=== PATIENT | male | born 1960 | race Caucasian/White ===

== ENCOUNTER 2022-08-28 06:57 | Outpatient (REF) | payer OTHER, SELFPAY ==
[2022-08-28 07:10] LABS: MANUAL DIFF FLAG NO
[2022-08-28 08:18] LABS: Basophils Percent Auto 0.5 % (0-2); Eosinophils Absolute Auto 0.1 X10*3/uL (0.0-0.4); Eosinophils Percent Auto 1.6 % (0-4); Hematocrit 53.3 % (42.0-52.0); Hemoglobin 18.3 g/dl (14.0-18.0); Imm Gran Abs Auto 0.03 X10*3/uL (0.00-0.03); Imm Gran Pct Auto 0.3 % (0.0-0.4); Lymphocytes Absolute Auto 1.8 X10*3/uL (1.2-4.9); Lymphocytes Percent Auto 20.4 % (20-40); Mean Corpuscular HGB Conc 34.3 g/dl (31.0-36.0); Mean Corpuscular Hemoglobin 31.8 pg (27.0-33.0); Mean Corpuscular Volume 92.5 fL (80.0-98.0); Mean Platelet Volume 9.4 fL (9.4-12.4); Monocytes Absolute Auto 0.9 X10*3/uL (0.1-1.2); Monocytes Percent Auto 9.8 % (2-11); Neutrophils Absolute Auto 5.9 x10*3/uL (2.0-8.3); Neutrophils Percent Auto 67.4 % (45-73); Platelet Count 219 X10*3/uL (160-400); Red Blood Count 5.76 X10*6/uL (4.60-5.80); Red Cell Distribution Width 11.7 % (11.0-16.0); White Blood Count 8.7 X10*3/uL (4.8-10.8)
[2022-08-28 08:39] LABS: Alanine Aminotransferase 29 U/L (0-40); Albumin Level 4.5 g/dL (3.5-5.0); Alkaline Phosphatase 77 U/L (39-117); Anion Gap 13 (12-20); Aspartate Amino Transferase 22 U/L (5-37); Bilirubin Total 1.1 mg/dL (0.0-1.0); Blood Urea Nitrogen 19 mg/dL (9-16); Calcium 9.9 mg/dL (8.4-10.2); Carbon Dioxide 27 mmol/L (22-29); Chloride 104 mmol/L (96-108); Cholesterol 188 mg/dL; Estimated Glomerular Filt Rate > 60; Glucose Fasting 101 mg/dL (60-99); HDL Cholesterol 35 mg/dL; LDL Cholesterol Calculated 122 mg/dl; Potassium 4.4 mmol/L (3.3-5.1); Prostate Specific Antigen 3.77 ng/mL (<0.05-4.0); Sodium 140 mmol/L (135-145); Total Protein 7.4 g/dL (6.5-8.0); Triglycerides 159 mg/dL
== END 2022-08-28 06:58 | disposition home or self-care (01) ==
LOC: HO.LAB 06:57
PROVIDERS: PCP Internal Medicine; Visit Provider Internal Medicine
DX: Z00.00 Encounter for general adult medical examination without abnormal findings (principal); Z12.5 Encounter for screening for malignant neoplasm of prostate
CPT/HCPCS: 36415; 80053; 80061; 84153; 85025

== ENCOUNTER 2022-09-27 14:15 | Outpatient (REF) | payer OTHER, SELFPAY | END 2022-09-27 14:16 | disposition home or self-care (01) | LOC: HO.LAB 14:15 | PROVIDERS: PCP Internal Medicine; Visit Provider Internal Medicine | DX: Z13.89 Encounter for screening for other disorder (principal) ==

== ENCOUNTER 2022-09-28 08:56 | Outpatient (REF) | payer OTHER, SELFPAY ==
[2022-09-28 12:46] LABS: Adenovirus F 40/41 Not Detected (Not Detect.); Astrovirus Not Detected (Not Detect.); Campylobacter Not Detected (Not Detect.); Cryptosporidium Not Detected (Not Detect.); Cyclospora cayetanensis Not Detected (Not Detect.); E. coli EAEC Not Detected (Not Detect.); E. coli EPEC Not Detected (Not Detect.); E. coli ETEC Not Detected (Not Detect.); E. coli STEC Not Detected (Not Detect.); Entamoeba histolytica Not Detected (Not Detect.); Giardia lamblia Not Detected (Not Detect.); Norovirus GI/GII Not Detected (Not Detect.); Plesiomonas shigelloides Not Detected (Not Detect.); Rotavirus A Not Detected (Not Detect.); Salmonella Not Detected (Not Detect.); Sapovirus Not Detected (Not Detect.); Shigella sp./EIEC Not Detected (Not Detect.); Vibrio Not Detected (Not Detect.); Vibrio Cholerae Not Detected (Not Detect.); Yersinia enterocolitica Not Detected (Not Detect.)
== END 2022-09-28 08:57 | disposition home or self-care (01) ==
LOC: HO.LNP 08:56
PROVIDERS: Visit Provider Internal Medicine
DX: R19.7 Diarrhea, unspecified (principal)
CPT/HCPCS: 87507

== ENCOUNTER 2023-02-01 06:47 | Day surgery (SDC) | payer OTHER, SELFPAY ==
--- NOTE | 2023-01-28 14:00 | P.CONAN_ITS ---
HPI - Anesthesia Eval Consult details Narrative: 62yo M for Colonoscopy [facility] Past Medical History Medical History (Updated 01/28/23 @ 12:43 by Radha Ledesma, RN) Arthritis Surgical History Surgical History (Updated 01/28/23 @ 12:43 by Radha Ledesma, AUGUSTINA) H/O colonoscopy H/O hernia repair History of surgical removal of skin lesion Social History Social History Patient Tobacco Use Status: Never used Tobacco Are you DNR?: No Advance Directives: No Advance Directives Information Provided: Yes Meds Allergies Allergy/AdvReac Type Severity Reaction Status Date / Time No Known Allergies Allergy Unverified 07/03/20 16:32 Home Medications Medication Instructions Recorded Confirmed Last Taken Type ibuprofen 200 mg tablet (Motrin IB) 200 mg PO DAILY 01/28/23 01/28/23 Unknown History Exam Exam Date and Time: January 28, 2023 1400 Assessment and Plan Assessment Anesthesia Assessment: Chart Reviewed
[2023-02-01 07:15] VITALS: BP 165/92; PULSE 62; RESP 18; TEMP 36.6; O2SAT 98; BMI 21.9
[2023-02-01] MEDS: Lactated Ringers 1,000 ML 100 ML IVCONT (07:32)
--- NOTE | 2023-02-01 08:13 | P.HPSUR_ITS ---
Pre-Procedural Eval Section A Date of Service: 02/01/23 Section B Chief Complaint: Encounter for screening for malignant neoplasm of Details of Present Illness: see H* P no changes Relevant Family History (Specify if Yes): No Relevant Social History: None Present Medications: see Short Stay Collaborative assessment Medical History: No relevant PMH Allergies: Allergies Allergy/AdvReac Type Severity Reaction Status Date / Time No Known Allergies Allergy Unverified 07/03/20 16:32 Review of Systems Sugical H&P ROS: Negative: Constitution, Cardiovascular, Respiratory, Neurological, Psychiatric, Hem-Onc, Allergic/Immunologic, Gastrointestinal, Genitourinary, Musculoskeletal, Integumentary, Endocrine and Eyes/Ears/Nose/Throat Exam Surgical H&P Exam: Normal: HEENT, Normal: Heart, Normal: Lungs, Normal: Extr emities, Normal: Abdomen, Normal: Skin and Normal: Neurological Plan Diagnosis/Plan: Unchanged I have reviewed the history and physical and performed a pertinent physical examination on my patient. No changes have occurred unless specified. Time Spent With Patient Time: Total time managing care of this patient today ____ minutes.
--- NOTE | 2023-02-01 09:05 | PM.OP ---
Brief Operative Note Date of Service: 02/01/23 Pre-op diagnosis: screening Post-op diagnosis: same Procedure: colonoscopy Surgeon: Santo Sanchez Anesthesia: MAC Was an Underwear Trimmer used for this Procedure?: No Estimated blood loss (mL): 2 Pathology: other Condition: stable Disposition: PACU
[2023-02-01 09:11] VITALS: BP 104/47; PULSE 65; RESP 16; TEMP 36.1; O2SAT 97
[2023-02-01 09:26] VITALS: BP 123/76; PULSE 62; RESP 16; TEMP 36.4; O2SAT 97
--- NOTE | 2023-02-01 09:41 | OP_ITS ---
DATE OF SERVICE: 02/01/2023 SURGEON: Santo Sanchez MD INDICATIONS: Colon cancer screening. PREOPERATIVE DIAGNOSIS: POSTOPERATIVE DIAGNOSIS: PROCEDURE PERFORMED: Colonoscopy to the cecum with snare polypectomy and biopsy. ESTIMATED BLOOD LOSS: COMPLICATIONS: ANESTHESIA: Monitored anesthesia care. ASSISTANTS: SPECIMENS: DESCRIPTION OF PROCEDURE: A history and physical was performed. The risks and benefits of the procedure were explained to the patient. Informed consent was obtained. The patient was placed in the left lateral decubitus position. A digital rectal exam was performed and was found to be normal. The Olympus pediatric video colonoscope was introduced into the rectum and advanced to the cecum without difficulty. The cecum was identified by transillumination, palpation, and identification of ileocecal valve. Examination was performed. The scope was removed. He tolerated the procedure well and was returned to the recovery area in stable condition. FINDINGS: The terminal ileum was not examined. The visualized colonic mucosa was normal. The quality of the prep was good. Multiple colonic polyps were identified and removed with a combination of biopsy forceps and snare polypectomy. These were located at the right colon 80 cm times two, 50 cm, and 45 cm. The largest measured approximately 10 mm. Retroflexed examination was normal. Small internal hemorrhoids were noted. IMPRESSION: Colon polyps. RECOMMENDATION: 1. Follow up the biopsy results. 2. Repeat colonoscopy will be recommended in 3 years. MD LAUREN Hampton/KAUSHIK / [id number]
== END 2023-02-01 09:47 | disposition home or self-care (01) ==
PROVIDERS: PCP Internal Medicine; Visit Provider Internal Medicine Gastroenterology
PROC: 0DJD8ZZ Inspection of Lower Intestinal Tract, Via Natural or Artificial Opening Endoscopic (ICD-10-PCS; CPT 45378; principal; 2023-02-01 08:00)
DX: Z12.11 Encounter for screening for malignant neoplasm of colon (principal); Z86.010 Personal history of colon polyps; D12.2 Benign neoplasm of ascending colon; D12.4 Benign neoplasm of descending colon; D12.5 Benign neoplasm of sigmoid colon; K64.8 Other hemorrhoids; M19.90 Unspecified osteoarthritis, unspecified site; Z79.1 Long term (current) use of non-steroidal anti-inflammatories (NSAID)
CPT/HCPCS: 45385; 45380; 88305

== ENCOUNTER 2023-07-04 06:31 | Outpatient (REF) | payer OTHER, SELFPAY ==
[2023-07-04 09:00] LABS: Prostate Specific Antigen 4.13 ng/mL (<0.05-4.0)
== END 2023-07-04 06:32 | disposition home or self-care (01) ==
LOC: HO.LAB 06:31
PROVIDERS: PCP Internal Medicine; Visit Provider Urology
DX: N40.1 Benign prostatic hyperplasia with lower urinary tract symptoms (principal); Z12.5 Encounter for screening for malignant neoplasm of prostate
CPT/HCPCS: 36415; 84153

== ENCOUNTER 2024-07-03 07:15 | Outpatient (REF) | payer OTHER, SELFPAY ==
[2024-07-03 08:23] LABS: Prostate Specific Antigen 4.05 ng/mL (<0.05-4.0)
== END 2024-07-03 07:16 | disposition home or self-care (01) ==
LOC: HO.LAB 07:15
PROVIDERS: PCP Internal Medicine; Visit Provider Urology
DX: R97.20 Elevated prostate specific antigen [PSA] (principal); Z12.5 Encounter for screening for malignant neoplasm of prostate
CPT/HCPCS: 36415; 84153

== ENCOUNTER 2025-06-25 07:42 | Outpatient (REF) | payer OTHER, SELFPAY ==
--- OUTSIDE RECORDS SUMMARY | 2025-06-25 07:48 | XMS_ITS | Patient Health Record ---
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 Yes How often did you have a dri nk containing alcohol in the past year? Monthly or less (1 point) Points 1 Interpretation Negative Tobacco use other than smoking: Question Answer Notes Are you an other tobacco user? No Plan Of Treatment Pending Test Test Name Order Date X ray : Foot, left 3V 08/31/2022 Insurance Providers Payer Name Payer Address Payer Phone Subscriber Number Group Number Insured Name Patient Relationship to Insured Coverage Start Date Coverage End Date [facility] [address] [facility] [place] [address] [id number] Adiel Horan Self - patient is the insured Medical (General) History Medical History History ICD Code Chicken pox osteoarthritis hip pain skin cancer Cataracts Surgical History Surgery Date(Month/Year) hernia
--- OUTSIDE RECORDS SUMMARY | 2025-06-25 07:49 | XMS_ITS | Patient Health Record ---
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 the day before the procedure for 1 day 12/20/2022 Active Immunizations Vaccine Route Administration Date Status Comme nts Influenza Unknown 12/20/2022 Refused Social History Tobacco Use: Social History Observation Description Date Details (start date - stop date) Never Smoker NA - NA Tobacco Use/Smoking Question Answer Notes Patient is a nonsmoker Alcohol Screen Question Answer Notes Did you have a drink contain ing alcohol in the past year? Yes How often did you have a dri nk containing alcohol in the past year? Monthly or less (1 point) How many drinks did you have on a typical day when you were drinking in the past year? 1 or 2 drinks (0 point) How often did you have 6 or more drinks on one occasion in the past year? Never (0 point) Points 1 Interpretation Negative Problems Problem Type SNOMED Code ICD Code Onset Dates Problem Status W/U Status Risk Notes Problem 296834754 Colon cancer screening (Z12.11) Active confirmed Problem 295307303 Personal history of colonic polyps (Z86.010) Active confirmed Problem 617258464 Encounter for other preprocedural examination (Z01.818) Active confirmed Problem 962587131 NSAID long-term use (Z79.1) Active confirmed Plan Of Treatment Future Test Test Name Order Date COLONOSCOPY 12/20/2022 Insurance Providers Payer Name Payer Address Payer Phone Subscriber Number Group Number Insured Name Patient Relationship to Insured Coverage Start Date Coverage End Date [facility] [address] [place] [phone] [id number] CHET HUDSON Self - patient is the insured Medical (General) History Medical History History ICD Code Colonoscopy 03/28/14, 3 small tubular vera nomas, five-year followup Arthritis Surgical History Surgery Date(Month/Year) hernia 15 years ago basal skin removal right arm and face 20 22
[2025-06-25 09:21] LABS: Blood Urea Nitrogen 20 mg/dL (9-16); Estimated Glomerular Filt Rate > 60
[2025-06-26 11:38] LABS: Free Prostate Spec Ag 0.7 ng/mL; Percent Free Prostate Spec Ag 18 % (calc) (>25)
== END 2025-06-25 07:43 | disposition home or self-care (01) ==
LOC: HO.LAB 07:42
PROVIDERS: PCP Student in an Organized Health Care Education/Training Program; Visit Provider Physician Assistant
DX: R97.20 Elevated prostate specific antigen [PSA] (principal)
CPT/HCPCS: 36415; 82565; 84154; 84520

== ENCOUNTER 2025-08-15 08:21 | Outpatient (AMB) | payer OTHER, SELFPAY ==
--- NOTE | 2025-08-15 07:52 | A.OFFPC_ITS ---
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: No Accompanied by: Self / Same As Patient Allergies No Known Allergies Allergy (Verified 08/15/25 07:52) Medication List - Last Reconciled 08/15/25 by Daniel Calderón MD ibuprofen (Motrin IB) 200 mg PO DAILY mupirocin 2% topical BID Tobacco use date assessed: 08/15/25 Fall risk assessment: No Falls in past year Last assessed Fall Risk: 08/15/25 Dental Screening Dental Screen Date: 08/15/25 Did you have a dental visit in the last 12 months?: Yes Did you have a dental problem in the last 6 months where you did not have access to dental care?: No Was dental information given to patient?: Patient has dentist HPI HPI Comments History of Present Illness Details The patient is a 64-year-old male presenting [facility]. He has a history of skin cancer with moles on his face and arm, for which he has undergone cryotherapy and sees a disaster recovery consultant every six months. He also has a history of a hernia surgery years ago. The patient reports having arthritis in his hands, with a specific diagnosis of osteoarthritis in his thumb confirmed by prior imaging. He experiences significant pain in his knuckles. Additionally, he has chronic neck pain from a fall years ago, for which he takes ibuprofen as needed. His blood pressure was elevated in the office at 150/100 mmHg, but he notes this is typical in a doctor's office, suggesting a component of white coat hypertension. Blood work from 2021 showed an LDL cholesterol of 122 mg/dL and total cholesterol of 188 mg/dL. He previously made dietary changes, such as reducing sugar intake, to manage his cholesterol. His mother had a history of skin cancer. The patient denies any history of smoking or illicit drug use and drinks alcohol very rarely. He reports significant anxiety related to medical visits. Medical History: - Skin cancer, with regular dermatology follow-up every six months. - Osteoarthritis of the hand, confirmed by imaging. - Chronic neck pain secondary to a fall. - Hyperlipidemia, with LDL of 122 mg/dL in 2021. - White coat hypertension. - Seasonal allergies. Surgical History: - Hernia repair. - Cryotherapy for skin moles. Medications: - Ibuprofen, as needed for neck pain and arthritis. Family History: - Mother: History of skin cancer. Diagnostic Results: - Labs (from 2021): LDL cholesterol 122 mg/dL, total cholesterol 188 mg/dL. - Imaging (date unspecified): Confirmed osteoarthritis in the thumb. Social History: - Alcohol Use: Denies regular alcohol co nsumption, stating he may have a glass of wine at [place]. - Tobacco Use: Denies smoking. - Illicit Drug Use: Denies any use of he roin, marijuana, or cocaine. - Housing: [place] [facility] [place] - Mood: Reports feeling anxious during t he medical visit. - Exercise: Reports being constantly act hailee, including walking his dogs and performing yard work. 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 - Nutritional Intake: Reports he and his partner eat very little processed food or salt. [facility] Medical History (Updated 08/15/25 @ 08:55 by Daniel Calderón MD) Generalized osteoarthritis of hand Cervical pain (neck) Hyperlipidemia Hypertension Arthritis Surgical History (Updated 08/13/25 @ 16:18 by Sherin Collado) History of surgical removal of skin lesion H/O hernia repair H/O colonoscopy (~02/01/23) Social History Housing: House Patient Tobacco Use Status: Never used Tobacco e-Cigarette/Vaping Use: Never Used service: Yes Current occupational status: retired Questionnaire PHQ-9 Over the last 2 weeks, how often have you been bothered by any of the following problems? 1. Little interest or pleasure in doing things: not at all 2. Feeling down, depressed, or hopeless: not at all 3. Trouble falling or staying asleep, or sleeping too much: not at all 4. Feeling tired or having little energy: not at all 5. Poor appetite or overeating: not at all 6. Feeling bad about yourself - or that you are a failure or have let yourself or your family down: not at all 7. Trouble concentrating on things, such as reading the newspaper or watching television: not at all 8. Moving or speaking so slowly that other people could have noticed. Or the opposite - being so fidgety or restless that you have been moving around a lot more than usual: not at all 9. Thoughts that you would be better off or of hurting yourself in some way: not at all Total score: 0 Depression Screening Interpretation: Negative Depression Screening Done: Yes 79427 - PHQ-9 Billing: Yes Source: Developed by Drs. Trung Fonseca, Olinda Bartholomew, Juanito Sanchez and colleagues, with an educational fatuma from [employer]. Thrive Questionnaire Date Thrive assessed: 08/15/25 I am a: Patient What is your living situation today?: I have a steady place to live Within the past 12 months, did the food you bought not last and you didn't have the money to get more?: Never true Within the past 12 months, did you worry whether your food would run out before you got money to buy more?: Never true Do you have trouble paying for medicines?: No Do you have trouble getting transportation to medical appointments?: No Do you have trouble paying your heating and electricity bill?: No Do you have trouble taking care of your child, family member or friend?: No Do you have trouble with day-to-day activities such as bathing, preparing meals, shopping, managing finances, etc.?: No Are you currently unemployed and looking for a job?: No Are you interested in more education?: No THRIVE Score: 0 AUDIT C Alcohol Use Questionnaire (AUDIT-C) 1. How often do you have a drink containing alcohol?: Monthly or less 2. How many drinks containing alcohol do you have on a typical day when you are drinking?: 1 or 2 3. How often do you have six or more drinks on one occasion?: Never Total Score: 1 Score Reviewed/Action Taken: Yes PEARL-7 AMB Questionnaire PEARL-7 Date PEARL - 7 assessed: 08/15/25 Feeling nervous, anxious, or on edge: 0 = Not at all Not being able to stop or control worryin = Not at all Worrying too much about different things: 0 = Not at all Trouble relaxin = Not at all Being so restless that it is hard to sit still: 0 = Not at all Becoming easily annoyed or irritable: 0 = Not at all Feeling afraid as if something awful might happen: 0 = Not at all Total PEARL-7 score (0-4 normal; 5-9 mild; 10-14 moderate; 15-21 severe): 0 Source: Developed by Drs. Trung Fonseca, Olinda Bartholomew, Juanito Sanchez and colleagues, with an educational fatuma from [employer]. PEARL-7 Assessment Billing PEARL-7 Assessment Tool: PEARL-7 Assessment 86700 Review of Systems Narrative - Allergic/Immunologic: Reports seasonal allergy symptoms when cutting grass. - Musculoskeletal: Reports chronic neck pain post-fall and arthritis pain in his hand knuckles. - Psychiatric: Reports feeling anxious about the current medical visit and having blood drawn. All systems reviewed & are unremarkable except as reviewed in HPI and above Physical exam (Primary Care) Vital Signs: Last Vital Signs Temp 97.7 F 08/15/25 08:28 Pulse 64 08/15/25 08:28 Resp 18 08/15/25 08:28 BP 150/106 H 08/15/25 08:28 Pulse Ox 98 08/15/25 08:28 Oxygen Delivery Method Room Air 08/15/25 08:28 BMI result Body Mass Index 26.9 Tobacco/Smoking Status: Tobacco use Status Tobacco use date assessed 08/15/25 08/15/25 07:52 Patient Tobacco Use Status Never used Tobacco 08/15/25 07:52 e-Cigarette/Vaping Use Never Used 08/15/25 08:30 PHQ-9: PHQ-9 Score PHQ-9: Total score 0 08/15/25 08:43 Depression Screening Interpretation: Negative Thrive Assessment: Date of Thrive Assessment Date Thrive assessed 08/15/25 08/15/25 08:43 Narrative General: +Alert and oriented, Well nourished, No acute distress. Eye: Pupils are equal, round and reactive to light, Intact accommodation, Extraocular movements are intact, Normal conjunctiva, Vision unchanged. HENT: Normocephalic, Atraumatic, Tympanic membranes are clear, Normal hearing, Oral mucosa is moist, No pharyngeal erythema, Ear canals patent. Respiratory: Lungs CTA bilaterally, No wheeze, Respirations are non-labored. Cardiovascular: Regular rate, Regular rhythm, S1 auscultated, S2 auscultated, No murmur, Good pulses equal in all extremities, Normal peripheral perfusion, No edema. Gastrointestinal: Soft, Non-tender, Non-distended, Normal bowel sounds, No organomegaly. Musculoskeletal: Normal range of motion, Normal strength, No tenderness, No swelling, No deformity, Normal gait. Integumentary: Warm, Dry, [place], Intact. Neurologic: Alert, Oriented, Normal sensory, Normal motor function, No focal defects, Cranial Nerves II-XII are grossly intact, Normal deep tendon reflexes. Psychiatric: Cooperative, Anxious mood, Appropriate affect, Normal judgment. Coding Level of Care Code New Pt Level 4 (94754) Diagnoses Other hyperlipidemia E78.49 Hyperlipidemia type: other hyperlipidemia Hypertension, unspecified type I10 Hypertension type: unspecified Cervical pain (neck) M54.2 Generalized osteoarthritis of hand M15.9 Additional Codes PEARL-7 Assessment Billing - PEARL-7 Assessment Tool: PEARL-7 Assessment 04000 ([id number]) PHQ-9 - 42429 - PHQ-9 Billing: Yes ([id number]) Assessment & Plan Assessment & Plan (1) Hyperlipidemia: Comment: - The patient had an LDL of 122 mg/dL in 2021. - He has an estimated 9-10% 10-year risk of a cardiac event. - A lipid panel was ordered today to reassess his current levels. - Results and potential management will be discussed at the follow-up visit. Code(s): E78.5 - Hyperlipidemia, unspecified Category: Medical Qualifiers: Hyperlipidemia type: other hyperlipidemia Qualified Code(s): E78.49 - Other hyperlipidemia (2) Hypertension: Comment: - The patient's blood pressure is 150/100 mmHg in the office, but white coat hypertension is suspected. - The plan is for the patient to monitor his blood pressure at home once or twice daily for four weeks. - A low-salt diet was discussed. - If home blood pressures are consistently high, antihypertensive medication luis miguel l be recommended, but the decision will be left to the patient. Code(s): I10 - Essential (primary) hypertension Category: Medical Qualifiers: Hypertension type: unspecified Qualified Code(s): I10 - Essential (primary) hypertension (3) Cervical pain (neck): Comment: - Prior history of trauma to the neck for which he uses ibuprofen PRN Code(s): M54.2 - Cervicalgia Category: Medical (4) Generalized osteoarthritis of hand: Comment: - The patient reports pain in his hand knuckles and has a known diagnosis. - He is managing symptoms with as-needed ibuprofen. - On exam does not have any nodules or tenderness Code(s): M15.9 - Polyosteoarthritis, unspecified Category: Medical Plan: Health Maintenance: - Cardiovascular risk: Discussed that based on blood pressure and 202 cholesterol levels, his 10-year risk of a cardiac event is estimated to be 9- 10%. - Screening Labs: Ordered comprehensive blood work, including electrolytes, blood counts, sugar, lipids, thyroid, vitamin D, and screening for hepatitis, HIV, and syphilis, based on USPSTF guidelines. - Dietary counseling: Recommended reducing salt and processed foods, which the patient reports already doing. - Blood pressure monitoring: Instructed the patient to monitor blood pressure at home for four weeks. Patient was informed and verbally consented to the use of an ambient scribe for clinic note documentation during this visit. Plan I introduced myself as this was our first visit. I explained to the patient that his blood pressure was elevated in the office at 150/100 mmHg, and I acknowledged his anxiety, introducing the concept of white coat hypertension. I proposed that he monitor his pressure at home for four weeks to gather more accurate data before considering medication. We reviewed his 2021 lab results, which showed an LDL of 122, and discussed that his combined risk factors put him at a 9-10% risk of a cardiac event. I explained the rationale for ordering comprehensive blood work today based on preventive care guidelines. The patient expressed significant reluctance towards taking medication, and I reassured him that we would work together, emphasizing that I would not push treatments he did not want unless absolutely necessary. We agreed to follow up in four weeks to discuss the blood pressure log and lab results and make shared decisions about the plan of care. Orders: Orders Comprehensive Met. Panel Today Z76.89 - Persons encountering health services in other specified circumstances Hemoglobin A1c Today Z76.89 - Persons encountering health services in other specified circumstances Syphilis Screen Today Z76.89 - Persons encountering health services in other specified circumstances Vitamin D 25-OH Total Today Z76.89 - Persons encountering health services in other specified circumstances Complete Blood Count Auto Diff Today Z76.89 - Persons encountering health services in other specified circumstances Hepatitis A,B,C Profile Today Z76.89 - Persons encountering health services in other specified circumstances HIV Ab/Ag Today Z76.89 - Persons encountering health services in other specified circumstances Lipid Panel Today Z76.89 - Persons encountering health services in other specified circumstances TSH reflex Free T4 Today Z76.89 - Persons encountering health services in other specified circumstances Medications: New blood pressure monitor (Blood Pressure Kit) As directed 1 ea 0RF I10 - Essential (primary) hypertension Patient Instructions: - Please go to the lab to have your blood drawn today for the tests we discussed. - Check your blood pressure at home once or twice a day (once when you wake up and once in the afternoon) for the next four weeks. - Please write down your blood pressure readings and bring the list with you to your next appointment. - Continue your current diet of limiting salt and processed foods. - If there is an issue with your blood work, you will receive a phone call tomorrow; otherwise, we will discuss the results at your next visit. - Your follow-up appointment is in four weeks.
[2025-08-15 08:28] VITALS: BP 150/106; PULSE 64; RESP 18; TEMP 36.5; O2SAT 98; BMI 26.9
== END 2025-08-15 08:56 | disposition home or self-care (01) ==
LOC: HO.HMCHD 08:21
PROVIDERS: PCP Student in an Organized Health Care Education/Training Program; Visit Provider Student in an Organized Health Care Education/Training Program
DX: E78.49 Other hyperlipidemia (principal); I10 Essential (primary) hypertension; M54.2 Cervicalgia; M15.9 Polyosteoarthritis, unspecified

== ENCOUNTER → 2025-08-15 08:21 | Outpatient (BNVA) | payer OTHER, SELFPAY | PROVIDERS: PCP Student in an Organized Health Care Education/Training Program; Visit Provider Student in an Organized Health Care Education/Training Program | DX: E78.49 Other hyperlipidemia (principal); I10 Essential (primary) hypertension; M54.2 Cervicalgia; M15.9 Polyosteoarthritis, unspecified | CPT/HCPCS: 96127 ==

== ENCOUNTER 2025-08-15 08:56 | Outpatient (REF) | payer MEDICARE, OTHER, SELFPAY ==
--- OUTSIDE RECORDS SUMMARY | 2025-08-15 10:00 | XMS_ITS | Patient Health Record ---
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 the day before the procedure; Duration: 1 day 12/20/2022 Active Immunizations Vaccine Route [...] Problem Status W/U Status Risk Notes Problem Colon cancer screening (415505116) Colon cancer screening (Z12.11) Active confirmed Problem History of polyp of colon (situation) (487444521) Personal history of colonic polyps (Z86.010) Active confirmed Problem Pre-procedure evaluation check (938483133) Encounter for other preprocedural examination (Z01.818) Active confirmed Problem longterm current use of non-steroidal anti-inflammat ory drug ([id number] 03) NSAID long-term use (Z79.1) Active confirmed Plan Of Treatment Future Test Test Name Order Date COLONOSCOPY 12/20/2022 Insurance Providers Payer Name Payer Address Payer Phone Subscriber Number Group Number Insured Name Patient Relationship to Insured Coverage Start Date Coverage End Date [facility] [address] [place] [phone] [id number] CHET HUDSON Self - patient is the insured Medical (General) History Medical History History ICD Code Colonoscopy 03/28/14, 3 small tubular vera nomas, five-year followup Arthritis Surgical History Surgery Date(Month/Year) hernia 15 years ago basal skin removal right arm and face 20 22
--- OUTSIDE RECORDS SUMMARY | 2025-08-15 10:00 | XMS_ITS | Patient Health Record ---
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
[2025-08-15 10:17] LABS: MANUAL DIFF FLAG NO
[2025-08-15 10:27] LABS: Hematocrit 52.4 % (42.0-52.0); Hemoglobin 17.2 g/dl (14.0-18.0); Imm Gran Abs Auto 0.05 X10*3/uL (0.00-0.03); Imm Gran Pct Auto 0.4 % (0.0-0.4); Lymphocytes Absolute Auto 2.5 X10*3/uL (1.2-4.9); Mean Corpuscular HGB Conc 32.8 g/dl (31.0-36.0); Mean Corpuscular Hemoglobin 31.1 pg (27.0-33.0); Mean Corpuscular Volume 94.8 fL (80.0-98.0); NRBC Abs Auto 0.000 X10*3/uL (0.0-0.012); NRBC Pct Auto 0.0 /100WBC (0.0-0.2); Platelet Count 232 X10*3/uL (160-400); Red Blood Count 5.53 X10*6/uL (4.60-5.80); White Blood Count 13.7 X10*3/uL (4.8-10.8)
[2025-08-15 11:28] LABS: Alanine Aminotransferase 44 U/L (0-40); Albumin Level 4.8 g/dL (3.5-5.0); Alkaline Phosphatase 84 U/L (39-117); Anion Gap 11 (12-20); Aspartate Amino Transferase 46 U/L (5-37); Blood Urea Nitrogen 18 mg/dL (9-16); Calcium 10.2 mg/dL (8.4-10.2); Carbon Dioxide 30 mmol/L (22-29); Chloride 103 mmol/L (96-108); Cholesterol 204 mg/dL (<200); Estimated Glomerular Filt Rate > 60; HDL Cholesterol 37 mg/dL (>40); Potassium 4.1 mmol/L (3.3-5.1); Sodium 140 mmol/L (135-145); Total Protein 8.2 g/dL (6.5-8.0); Triglycerides 395 mg/dL (<150)
[2025-08-15 11:56] LABS: HBS Num1 0.57 mIU/mL (0-7.99); HBc Num1 0.07 S/CO (0.00-0.79); HBsAGNum1 0.58 S/CO (0.00-0.99); HIV Num 1 0.06 S/CO (0.00-0.99); Hepatitis A Antibody IgM 0.13 Index (0-0.79); Hepatitis B Surface Antigen Negative (Negative); Syphilis Screen Nonreactive (Nonreactive); ~HepC Num1 0.17 S/CO (0.00-0.79); ~Hepatitis A Antibody IgM Nonreactive (Nonreactive); ~Hepatitis B Surface Antibody NONREACTIVE (Nonreactive); ~Hepatitis C Antibody Nonreactive (Nonreactive)
== END 2025-08-15 08:57 | disposition home or self-care (01) ==
LOC: HO.10HDL 08:56
PROVIDERS: Visit Provider Student in an Organized Health Care Education/Training Program
DX: Z11.4 Encounter for screening for human immunodeficiency virus [HIV] (principal); Z13.1 Encounter for screening for diabetes mellitus; Z76.89 Persons encountering health services in other specified circumstances; Z13.6 Encounter for screening for cardiovascular disorders
CPT/HCPCS: 36415; 80053; 80061; 82306; 83036; 84443; 85025; 86704; 86706; 86709; 86780; 86803; 87340; 87389

== ENCOUNTER 2025-09-10 07:36 | Outpatient (AMB) | payer OTHER, SELFPAY ==
--- NOTE | 2025-09-10 07:46 | MHC.PC.OV ---
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 The patient has a history of hypertension with a previous blood pressure reading of 150/x, which has now improved to 136/84 mmHg in the office. The patient reports that home blood pressure readings have also been good. Associated headaches, likely due to high blood pressure, have resolved, and the patient no longer uses Tylenol or ibuprofen. Regarding hyperlipidemia, recent lab results showed a total cholesterol of 204 mg/dL, LDL of 88 mg/dL, low HDL of 37 mg/dL, and high triglycerides of 395 mg/dL. The patient was started on atorvastatin 20 mg and has been making dietary changes. Recent lab work also revealed mildly elevated liver enzymes, with an AST of 46 U/L and an ALT of 44 U/L. Hepatitis testing was negative, and the patient reports drinking alcohol only about once a year. The patient also has a history of a fall, causing a head injury and subsequent neck issues that required physical therapy. Past medical history is also notable for prostate cancer and skin cancer. Medical History: - Hypertension - Hyperlipidemia - History of headaches, resolved - History of fall with head injury - History of prostate cancer - History of skin cancer - Lab testing for hepatitis, HIV, and syphilis were negative. Medications: - Amlodipine 5 mg for hypertension - Atorvastatin 20 mg for hyperlipidemia - Previously used Tylenol and ibuprofen for headaches, but is no longer taking them. Diagnostic Results: - Vital Signs: In-office blood pressure was 136/84 mmHg. - Labs: - Total cholesterol: 204 mg/dL - LDL cholesterol: 88 mg/dL - HDL cholesterol: 37 mg/dL - Triglycerides: 395 mg/dL - Vitamin D: Good - TSH: 3.32 - Hemoglobin A1c: 5.7% - AST: 46 U/L - ALT: 44 U/L - Hepatitis panel: Negative - HIV status: Negative - Syphilis status: Negative Social History - Alcohol Use: Reports drinking alcohol infrequently, about once a year. - Diet: The patient is actively making dietary changes, including watching salt intake, avoiding butter and sugar, and eating more vegetables. - Caffeine: Inquires about caffeine intake; advised that it can raise blood pressure. - Activity Level: Advised to stay active and keep moving. [facility] Medical History (Updated 09/10/25 @ 08:45 by Daniel Calderón MD) Elevated liver enzymes Generalized osteoarthritis of hand Cervical pain (neck) Hyperlipidemia Hypertension Arthritis Surgical History (Updated 08/13/25 @ 16:18 by Sherin Collado) History of surgical removal of skin lesion H/O hernia repair H/O colonoscopy (~02/01/23) Social History Housing: House Patient Tobacco Use Status: Never used Tobacco e-Cigarette/Vaping Use: Never Used service: Yes Current occupational status: retired Questionnaire Thrive Questionnaire Date Thrive assessed: 08/15/25 PEARL-7 AMB Questionnaire PEARL-7 Date PEARL - 7 assessed: 08/15/25 Source: Developed by Drs. Trung Fonseca, Olinda Bartholomew, Juanito Sanchez and colleagues, with an educational fatuma from [employer]. Review of Systems Narrative Review of Systems - General: Reports feeling well. - Neurological: Denies current headaches, which were previously an issue. - GI/: Reports normal urination, bowel movements, eating, and drinking. - Sleep: Reports sleeping well but with occasional awakenings. All systems reviewed & are unremarkable except as reviewed in HPI and above Physical exam (Primary Care) Vital Signs: Last Vital Signs Temp 98 F 09/10/25 07:56 Pulse 68 09/10/25 07:56 Resp 18 09/10/25 07:56 BP 136/84 09/10/25 07:56 Pulse Ox 98 09/10/25 07:56 Oxygen Delivery Method Room Air 09/10/25 07:56 BMI result Body Mass Index 25.0 Tobacco/Smoking Status: Tobacco use Status Tobacco use date assessed 08/15/25 09/10/25 07:49 Patient Tobacco Use Status Never used Tobacco 09/10/25 07:49 e-Cigarette/Vaping Use Never Used 09/10/25 07:49 Thrive Assessment: Date of Thrive Assessment Date Thrive assessed 08/15/25 09/10/25 07:49 Narrative Physical Exam General: +Alert and oriented, Well nourished, No acute distress. Eye: Pupils are equal, round and reactive to light, Intact accommodation, Extraocular movements are intact, Normal conjunctiva, Vision unchanged. HENT: Normocephalic, Atraumatic, Tympanic membranes are clear, Normal hearing, Oral mucosa is moist, No pharyngeal erythema, Ear canals patent. Respiratory: Lungs CTA bilaterally, No wheeze, Respirations are non-labored. Cardiovascular: Regular rate, Regular rhythm, S1 auscultated, S2 auscultated, No murmur, Good pulses equal in all extremities, Normal peripheral perfusion, No edema. Gastrointestinal: Soft, Non-tender, Non-distended, Normal bowel sounds, No organomegaly. Musculoskeletal: Normal range of motion, Normal strength, No tenderness, No swelling, No deformity, Normal gait. Integumentary: Warm, Dry, [place], Intact. Neurologic: Alert, Oriented, Normal sensory, Normal motor function, No focal defects, Cranial Nerves II-XII are grossly intact, Normal deep tendon reflexes. Psychiatric: Cooperative, Appropriate mood & affect, Normal judgment. Coding Level of Care Code Est Pt Level 4 (70916) Complex visit Add On G2211 Diagnoses Hypertension, unspecified type I10 Hypertension type: unspecified Other hyperlipidemia E78.49 Hyperlipidemia type: other hyperlipidemia Elevated liver enzymes R74.8 Assessment & Plan Assessment & Plan (1) Hypertension: Comment: - Blood pressure is well-controlled, showing significant improvement attributed to amlodipine and dietary changes. - The plan is to continue amlodipine 5 mg and for the patient to monitor blood pressure at home once or twice a week. Code(s): I10 - Essential (primary) hypertension Category: Medical Qualifiers: Hypertension type: unspecified Qualified Code(s): I10 - Essential (primary) hypertension (2) Hyperlipidemia: Comment: - Characterized by high triglycerides, high total cholesterol, and low HDL. - The patient was started on atorvastatin 20 mg. - The plan includes continuing atorvastatin and emphasizing ongoing dietary modification with a focus on moderation. Code(s): E78.5 - Hyperlipidemia, unspecified Category: Medical Qualifiers: Hyperlipidemia type: other hyperlipidemia Qualified Code(s): E78.49 - Other hyperlipidemia (3) Elevated liver enzymes: Comment: - Borderline elevation of AST and ALT noted. - Hepatitis has been ruled out, and an alcohol-related cause is unlikely. - Fatty liver is suspected given the lipid profile. - A liver ultrasound has been ordered for further evaluation. - The patient was reassured that the elevation is minimal and may normalize with lifestyle changes. Code(s): R74.8 - Abnormal levels of other serum enzymes Category: Medical Plan: Health Maintenance: - Discussed dietary management, emphasizing moderation in salt, sugar, and fat intake. - Advised to monitor blood pressure at home once or twice weekly. - Encouraged to stay active. - A liver ultrasound has been ordered to investigate mildly elevated liver enzymes. - Follow-up scheduled in 6 months. Patient was informed and verbally consented to the use of an ambient scribe for clinic note documentation during this visit. Plan I reviewed the patient's impressive progress, noting the significant improvement in blood pressure, which I attributed to medication adherence and dietary changes. We discussed the lab results, including the high cholesterol and triglycerides, and the plan to continue atorvastatin and diet to manage these. I addressed the patient's concerns regarding mildly elevated liver enzymes, explaining that this is a very borderline finding and not indicative of liver failure. I explained the rationale for ordering a liver ultrasound to investigate for fatty liver but provided reassurance that the enzyme levels may normalize with time and lifestyle changes. We agreed on the plan to continue current medications without changes and to follow up in six months. Medications: Refilled amlodipine 5 mg PO DAILY 90 tabs 1RF Patient Instructions: - Continue taking your amlodipine 5 mg for blood pressure and atorvastatin 20 mg for cholesterol as prescribed. - Check your blood pressure at home once or twice a week to keep track of your progress. - Continue with your diet, but remember that everything in moderation is okay; you do not need to completely cut out salt or other foods. - Be aware that caffeine can raise your blood pressure. - Please complete the liver ultrasound that has been ordered. I will call you with the results once they are available. - Schedule a follow-up appointment in six months. - Stay active and keep moving.
[2025-09-10 07:56] VITALS: BP 136/84; PULSE 68; RESP 18; TEMP 36.6; O2SAT 98; BMI 25.0
== END 2025-09-10 08:17 | disposition home or self-care (01) ==
LOC: HO.HMCHD 07:37
PROVIDERS: PCP Student in an Organized Health Care Education/Training Program; Visit Provider Student in an Organized Health Care Education/Training Program
DX: I10 Essential (primary) hypertension (principal); E78.49 Other hyperlipidemia; R74.8 Abnormal levels of other serum enzymes

== ENCOUNTER 2025-10-07 10:39 | Outpatient (AMB) | payer MEDICARE, OTHER, SELFPAY ==
--- NOTE | 2025-10-07 10:47 | MHC.PC.OV ---
Vital Signs 10/07/25 10:49 Height 5 ft 9 in Weight 166 lb 8 oz BMI 24.6 BP 120/68 Blood Pressure Location Rt brachial Position Sitting Respiration 16 Pulse 72 Pulse Source Pulse Oximeter Temp 96.6 F L Temp Source Temporal Artery Scan Pulse Oximetry (%) 95 Oxygen Delivery Method Room Air Intake Visit Reasons: Hernia Symptoms Seafood Manager Required: No Accompanied by: Self / Same As Patient Allergies No Known Allergies Allergy (Verified 10/07/25 10:47) Medication List - Last Reconciled 10/07/25 by Daniel Calderón MD amlodipine 5 mg PO DAILY atorvastatin (Lipitor) 20 mg PO BEDTIME blood pressure monitor (Blood Pressure Kit) As directed Tobacco use date assessed: 08/15/25 Fall risk assessment: No Falls in past year Last assessed Fall Risk: 10/07/25 Dental Screening Dental Screen Date: 08/15/25 HPI HPI Comments History of Present Illness Details History of Present Illness The patient is a 65 year old male presenting with left-sided stomach pain. He reports a history of a hernia on the other side that required surgery. The current pain began after recent physical exertion, including heavy lifting, frequent stair climbing, and extensive walking. He notes the pain worsens with activity and seems to improve with rest. He is compliant with his medications, which include amlodipine 5 mg and atorvastatin 20 mg. His blood pressure is well-controlled. The patient has a known mild elevation of liver enzymes and is scheduled for an ultrasound on October 18. Medical History: - Hypertension, well-controlled on amlodipine. - Hyperlipidemia, treated with atorvastatin. - History of hernia, contralateral side. - Mild elevation of liver enzymes. Surgical History: - Hernia repair, contralateral side. Medications: - Amlodipine 5 mg for hypertension. - Atorvastatin 20 mg for hyperlipidemia. Family History: No family history was discussed. Diagnostic Results: - Blood pressure: 120/68 mmHg. - Labs: Mild elevation of liver enzymes noted. - Imaging: An ultrasound is scheduled for October 18. Social History - Activity: Reports recent strenuous activity including heavy lifting, walking long distances, and frequent stair climbing [facility] Medical History (Updated 10/07/25 @ 11:10 by Daniel Calderón MD) Inguinal hernia Elevated liver enzymes Generalized osteoarthritis of hand Cervical pain (neck) Hyperlipidemia Hypertension Arthritis Surgical History (Updated 08/13/25 @ 16:18 by Sherin Collado) History of surgical removal of skin lesion H/O hernia repair H/O colonoscopy (~02/01/23) Social History Housing: House Patient Tobacco Use Status: Never used Tobacco e-Cigarette/Vaping Use: Never Used service: Yes Current occupational status: retired Questionnaire Thrive Questionnaire Date Thrive assessed: 08/15/25 AUDIT C Alcohol Use Questionnaire (AUDIT-C) 1. How often do you have a drink containing alcohol?: Never 3. How often do you have six or more drinks on one occasion?: Never Total Score: 0 PEARL-7 AMB Questionnaire PEARL-7 Date PEARL - 7 assessed: 08/15/25 Source: Developed by Drs. Trung Fonseca, Olinda Bartholomew, Juanito Sanchez and colleagues, with an educational fatuma from [employer]. Review of Systems Narrative Review of Systems - Abdomen: Reports pain in the left abdominal/groin area, which worsens with activity and exertion such as coughing. All systems reviewed & are unremarkable except as reviewed in HPI and above Physical exam (Primary Care) Vital Signs: Last Vital Signs Temp 96.6 F L 10/07/25 10:49 Pulse 72 10/07/25 10:49 Resp 16 10/07/25 10:49 BP 120/68 10/07/25 10:49 Pulse Ox 95 10/07/25 10:49 Oxygen Delivery Method Room Air 10/07/25 10:49 Care Plan Goal for BP management: in goal BMI result Body Mass Index 24.6 Tobacco/Smoking Status: Tobacco use Status Tobacco use date assessed 08/15/25 10/07/25 10:53 Patient Tobacco Use Status Never used Tobacco 10/07/25 10:53 e-Cigarette/Vaping Use Never Used 10/07/25 10:53 Thrive Assessment: Date of Thrive Assessment Date Thrive assessed 08/15/25 10/07/25 10:53 Narrative Physical Exam General: +Alert and oriented, Well nourished, No acute distress. Eye: Pupils are equal, round and reactive to light, Intact accommodation, Extraocular movements are intact, Normal conjunctiva, Vision unchanged. HENT: Normocephalic, Atraumatic, Tympanic membranes are clear, Normal hearing, Oral mucosa is moist, No pharyngeal erythema, Ear canals patent. Respiratory: Lungs CTA bilaterally, No wheeze, Respirations are non-labored. Cardiovascular: Regular rate, Regular rhythm, S1 auscultated, S2 auscultated, No murmur, Good pulses equal in all extremities, Normal peripheral perfusion, No edema. Gastrointestinal: Soft, Non-tender, Non-distended, Normal bowel sounds, No organomegaly, Possible inguinal hernia noted on examination, positive impulse with cough. Musculoskeletal: Normal range of motion, Normal strength, No tenderness, No swelling, No deformity, Normal gait. Integumentary: Warm, Dry, [place], Intact. Neurologic: Alert, Oriented, Normal sensory, Normal motor function, No focal defects, Cranial Nerves II-XII are grossly intact, Normal deep tendon reflexes. Psychiatric: Cooperative, Appropriate mood & affect, Normal judgment. Coding Level of Care Code Est Pt Level 4 (30085) Add On Problem Visit Only Diagnoses Non-recurrent unilateral inguinal hernia without obstruction or gangrene K40.90 Obstruction and gangrene presence: without obstruction or gangrene Laterality: unilateral Recurrence: non-recurrent Hypertension, unspecified type I10 Hypertension type: unspecified Other hyperlipidemia E78.49 Hyperlipidemia type: other hyperlipidemia Elevated liver enzymes R74.8 Assessment & Plan Assessment & Plan (1) Inguinal hernia: Comment: - The diagnosis was confirmed on physical exam, which showed a reducible bulge with a positive cough impulse. - A referral will be placed to a general surgeon for evaluation. - The patient was educated on signs of incarceration, including extreme pain or inability to defecate, and advised to go to the emergency room if these symptoms occur. - He was also advised to avoid heavy lifting, wear supportive briefs, and may use Tylenol for pain. Code(s): K40.90 - Unilateral inguinal hernia, without obstruction or gangrene, not specified as recurrent Category: Medical Qualifiers: Obstruction and gangrene presence: without obstruction or gangrene Laterality: unilateral Recurrence: non-recurrent Qualified Code(s): K40.90 - Unilateral inguinal hernia, without obstruction or gangrene, not specified as recurrent (2) Hypertension: Comment: - The patient is well-controlled with a blood pressure of 120/68 mmHg on amlodipine 5 mg. - He will continue his current medication. Code(s): I10 - Essential (primary) hypertension Category: Medical Qualifiers: Hypertension type: unspecified Qualified Code(s): I10 - Essential (primary) hypertension (3) Hyperlipidemia: Comment: - The patient is on atorvastatin 20 mg and will continue this medication. Code(s): E78.5 - Hyperlipidemia, unspecified Category: Medical Qualifiers: Hyperlipidemia type: other hyperlipidemia Qualified Code(s): E78.49 - Other hyperlipidemia (4) Elevated liver enzymes: Comment: - Borderline elevation of AST and ALT noted. - Hepatitis has been ruled out, and an alcohol-related cause is unlikely. - Fatty liver is suspected given the lipid profile. - The patient has a mild elevation and is scheduled for an ultrasound on October 18 for further evaluation. - I will call him with the results once they are available. Code(s): R74.8 - Abnormal levels of other serum enzymes Category: Medical Plan: Health Maintenance: - The patient is scheduled for an ultrasound on October 18 to follow up on mildly elevated liver enzymes. Patient was informed and verbally consented to the use of an ambient scribe for clinic note documentation during this visit. Plan I discussed the diagnosis of a left inguinal hernia with the patient, explaining that the bulge that appears with coughing is a classic sign. I informed him that I will place a referral to a general surgeon for further evaluation, though surgery may not be immediately necessary. I advised him on the warning signs of a- complication called incarceration, including extreme pain and inability to defecate, and stressed the importance of going to the emergency room if these occur. We also discussed lifestyle modifications, such as avoiding heavy lifting and using supportive briefs. Regarding his mildly elevated liver enzymes, I reassured him that it is not an immediate concern and that we are following protocol by obtaining an ultrasound. I committed to calling him with the results as soon as they become available. Orders: Referrals General Surgery Referral K40.90 - Unilateral inguinal hernia, without obstruction or gangrene, not specified as recurrent Patient Instructions: - You have a new inguinal hernia on your left side. - A referral will be made to a surgeon to see if this needs to be repaired. - If you develop extreme pain in the area, or if you become unable to have a bowel movement, you must go to the emergency room. - Avoid lifting heavy weights. - Wear supportive briefs. - You may take Tylenol for pain if needed. - Continue taking your amlodipine for blood pressure and atorvastatin for cholesterol as prescribed. - Please attend your scheduled ultrasound on October 18. - We will call you with the ultrasound results as soon as they are available.
[2025-10-07 10:49] VITALS: BP 120/68; PULSE 72; RESP 16; TEMP 35.9; O2SAT 95; BMI 24.6
--- OUTSIDE RECORDS SUMMARY | 2025-10-07 13:11 | XMS_ITS | Patient Health Record ---
Author Organization [facility] Address [address] [place] [address] Care Team Providers Care Chief Quality Officer Name Role Phone Yair (RETIRED) Alfred SUTHERLAND Primary Care Provide r Santo Mireles Jr Unavailable Allergies No Known Allergies Reason For Referral No Information Medications Medication SIG (Take, Route, Frequency, Duration) Notes Start Date End Date Status Motrin IB 200 MG Tablet 1 tablet with fo od or milk as needed Orally Three times a day 12/20/2022 Active MiraLax (colon prep) 17 GM/SCOOP Powder mixed with Gatorade or Crystal Light Orally begin at 5:00 p.m. the day before the procedure; Duration: 1 day 12/20/2022 Active Immunizations Vaccine Route Administration Date Status Comme nts Influenza Unknown 12/20/2022 Refused Social History Tobacco Use: Social History Observation Description Date Details (start date - stop date) Never Smoker NA - NA Social History Drugs/Alcohol: Social Info Question Answer Notes Alcohol Screen Did you have a drink containing alcohol in the past year? Yes How often did you have a drink containing alcohol in the past year? Monthly or less (1 point) How many drinks did you have on a typical day when you were drinking in the past year? 1 or 2 drinks (0 point) How often did you have 6 or more drinks on one occasion in the past year? Never (0 point) Points 1 Interpretation Negative Tobacco Use: Social Info Question Answer Notes Tobacco Use/Smoking Patient is a nonsmoker Additional Details Category Social Info Options Details Miscellaneous: Marital status: Occupation: retired part [employer] work Problems Problem Type SNOMED Code ICD Code Onset Dates Problem Status W/U Status Risk Notes Problem Colon cancer screening (376549855) Colon cancer screening (Z12.11) Active confirmed Problem History of polyp of colon (situation) (889114308) Personal history of colonic polyps (Z86.010) Active confirmed Problem Pre-procedure evaluation check (770321230) Encounter for other preprocedural examination (Z01.818) Active confirmed 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-inflammat 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 drug (7158027309677 03) NSAID long-term use (Z79.1) Active confirmed Plan Of Treatment Future Test Test Name Order Date COLONOSCOPY 12/20/2022 Insurance Providers Payer Name Payer Address Payer Phone Subscriber Number Group Number Insured Name Patient Relationship to Insured Coverage Start Date Coverage End Date [facility] [address] [facility] [place] [phone] [id number] CHET HUDSON Self - patient is the insured Medical (General) History Medical History History ICD Code Colonoscopy 03/28/14, 3 small tubular vera nomas, five-year followup Arthritis Surgical History Surgery Date(Month/Year) hernia 15 years ago basal skin removal right arm and face 20 22
== END 2025-10-07 11:05 | disposition home or self-care (01) ==
LOC: HO.HMCHD 10:40
PROVIDERS: PCP Student in an Organized Health Care Education/Training Program; Visit Provider Student in an Organized Health Care Education/Training Program
DX: K40.90 Unilateral inguinal hernia, without obstruction or gangrene, not specified as recurrent (principal); I10 Essential (primary) hypertension; E78.49 Other hyperlipidemia; R74.8 Abnormal levels of other serum enzymes

== ENCOUNTER → 2025-10-07 10:39 | Outpatient (BNVA) | payer MEDICARE, OTHER, SELFPAY | PROVIDERS: PCP Student in an Organized Health Care Education/Training Program; Visit Provider Student in an Organized Health Care Education/Training Program | DX: K40.90 Unilateral inguinal hernia, without obstruction or gangrene, not specified as recurrent (principal); I10 Essential (primary) hypertension; E78.5 Hyperlipidemia, unspecified; R74.8 Abnormal levels of other serum enzymes | CPT/HCPCS: 99212 ==